=== PATIENT | female | born 1985 | race African-American/Black ===

== ENCOUNTER 2022-09-09 19:47 | Emergency (ER) | payer OTHER, MEDICAID ==
[~2022-09-09] VITALS: Ht 162.6 cm; Wt 80.0 kg
[2022-09-09] MEDS ORDERED: SODIUM CHLORIDE 0.9% 1,000 ML IV ONE (20:45)
[2022-09-09] MEDS ORDERED: LEVETIRACETAM 1000MG PREMIX 100 ML IV ONE (20:45)
[2022-09-09] MEDS ORDERED: LORAZEPAM 2MG/ML CPJ IV PRN (20:45)
[2022-09-09 21:48] LABS: BASOPHILS % 0.5 % (0.0-2.0); EOSINOPHILS % 0.9 % (0.0-5.0); HEMATOCRIT. 32.6 % (36.0-48.0); HEMOGLOBIN. 10.6 g/dL (12.0-16.0); LYMPHOCYTES % 15.4 % (20.0-50.0); MEAN CORPUSCULAR HEMOGLOBIN 25.4 pg (28.0-32.0); MEAN CORPUSCULAR VOLUME 77.8 fL (81.0-99.0); MEAN PLATELET VOLUME 7.8 fl (7.4-10.4); MONOCYTES % 4.9 % (2.0-8.0); NEUTROPHILS % 78.3 % (40.0-76.0); PLATELET 392 x1000/uL (130-400); RED BLOOD CELL COUNT 4.18 mill/uL (4.2-5.4); RED CELL DISTRIBUTION WIDTH 18.4 % (11.6-14.6)
[2022-09-09 21:56] LABS: PROTHROMBIN TIME 10.7 sec (9.6-11.0)
[2022-09-09 22:03] LABS: CHLORIDE 106 mEq/L (98-107)
[2022-09-09 22:20] LABS: CREATINE KINASE 126 IU/L (26-192); ETHANOL BLOOD < 10 mg/dL
[2022-09-09] MEDS ORDERED: LEVETIRACETAM 1000MG PREMIX 100 ML IV NR (23:15)
[2022-09-10 01:20] VITALS: BP 128/80
== END 2022-09-10 02:42 | disposition home or self-care (01) ==
LOC: ER 19:47 → EDBEDREQ 20:55 → ER 09-10 02:42 → CANBEDREQ 09-10 20:54
DX: G40.909 Epilepsy, unspecified, not intractable, without status epilepticus (principal); R00.0 Tachycardia, unspecified; Z20.822 Contact with and (suspected) exposure to COVID-19
CPT/HCPCS: 36415; 70450; 80053; 80320; 82550; 84443; 84484; 85025; 85610; 87426; 93005; 96365; 96366; 99285; C9803; J1953; J7030; J2060; G0480